=== PATIENT | female | born 1990 ===

== ENCOUNTER → 2020-05-09 | Outpatient (CLI) | payer OTHER | END | disposition home or self-care (01) | LOC: PRENATAL 09:42 | PROVIDERS: ATTEND Obstetrics & Gynecology Maternal & Fetal Medicine | DX: O35.0XX1 Maternal care for (suspected) central nervous system malformation in fetus, fetus 1 (principal); O35.3XX1 Maternal care for (suspected) damage to fetus from viral disease in mother, fetus 1; O98.512 Other viral diseases complicating pregnancy, second trimester; O99.212 Obesity complicating pregnancy, second trimester; Z36.89 Encounter for other specified antenatal screening; Z3A.19 19 weeks gestation of pregnancy ==

== ENCOUNTER 2020-09-26 19:46 | Inpatient (IN) | payer OTHER ==
[~2020-09-26] VITALS: Ht 152.4 cm; Wt 91.6 kg
[2020-09-27] MEDS ORDERED: IRON325 MG PO (00:24)
[2020-09-27] MEDS ORDERED: PRENATAL VITAM1 EAC7 PO (00:24)
== END 2020-09-30 16:25 | disposition home or self-care (01) | DRG 788 ==
LOC: LDR 19:46 → O/R 09-27 15:12 → OB/GYN 09-27 16:15
PROVIDERS: ADMIT Obstetrics & Gynecology; ATTEND Obstetrics & Gynecology
PROC: 3E0P7VZ Introduction of Hormone into Female Reproductive, Via Natural or Artificial Opening (ICD-10-PCS; 2020-09-26)
PROC: 4A1HXFZ Monitoring of Products of Conception, Cardiac Rhythm, External Approach (ICD-10-PCS; 2020-09-26)
PROC: 10D00Z1 Extraction of Products of Conception, Low, Open Approach (ICD-10-PCS; principal; 2020-09-27 14:00)
DX: O76 Abnormality in fetal heart rate and rhythm complicating labor and delivery (principal); Z3A.39 39 weeks gestation of pregnancy; Z37.0 Single live birth; Z20.822 Contact with and (suspected) exposure to COVID-19

== ENCOUNTER 2022-04-22 08:45 | Inpatient (IN) | payer OTHER ==
[~2022-04-22] VITALS: Ht 152.4 cm; Wt 3.6 kg
[~2022-04-22 08:45] MED LIST: IRON325 MG PO; PRENATAL VITAM1 EAC7 PO
[2022-04-24] MEDS ORDERED: IRON325 MG PO (10:30)
[2022-04-26] MEDS ORDERED: IBUPROFEN800 MG PO ×2 (07:33→08:13)
== END 2022-04-26 15:03 | disposition home or self-care (01) | DRG 788 ==
LOC: OB/GYN 04-24 08:45 → O/R 04-24 09:27 → OB/GYN 04-24 09:27
PROVIDERS: ADMIT Obstetrics & Gynecology; ATTEND Obstetrics & Gynecology
PROC: 4A1HXCZ Monitoring of Products of Conception, Cardiac Rate, External Approach (ICD-10-PCS; 2022-04-24)
PROC: 10D00Z1 Extraction of Products of Conception, Low, Open Approach (ICD-10-PCS; principal; 2022-04-24 17:00)
DX: O34.211 Maternal care for low transverse scar from previous cesarean delivery (principal); Z3A.38 38 weeks gestation of pregnancy; Z37.0 Single live birth; Z20.822 Contact with and (suspected) exposure to COVID-19